=== PATIENT | female | born 2000 | race Caucasian/White ===

== ENCOUNTER 2024-09-01 00:21 | Emergency (ER) | payer SELFPAY ==
[2024-09-01 00:28] VITALS: BP 110/83
--- NOTE | 2024-09-01 01:41 | EDRN ---
Pt ate pizza last evening and went out with friends drinking. pt says she had 3 vodka and cranberry drinks in 3 hours. Pt says she suddenly couldn't feel her body, her feet were numb and she felt 'woozy.' Pt had nausea and vomited. Last vomited
around 2330. All symptoms have resolved and pt feels 'a lot better.' Pt has been drinking water without difficulty. Pt ate some snacks from vending machine and asked for food - given boxed turkey sandwich meal.
[2024-09-01 01:45] VITALS: BP 108/62
--- NOTE | 2024-09-01 02:31 | ED.GENMED ---
History of Present Illness
General
Chief Complaint: Alcohol Problem
Source: patient
Time Seen by Provider: 09/01/24 02:28
History of Present Illness
History of Present Illness:
23-year-old female presents to the emergency room complaining of nausea, vomiting after drinking with friends at a bar for 22st birthday. Patient admits to drinking several beverages. Patient's sister also is highly intoxicated.
Phy Exam
Physical Exam
Physical Exam:
General: Awake, Alert, Oriented X3. No acute distress. Mildly intoxicated
Vitals: unremarkable
Head: Atraumatic
Eyes: Pupils equal, EOMI
Throat: Airway intact, no exudates
Neck: Trachea midline
Lungs: Clear and equal b/l
Heart: Regular rate, no murmurs
Abd: Soft, Nontender, No pulsatile mass
Neuro: Nonfocal
Skin: Warm, dry, no rash
Extremities: pulses equal b/l, no edema
Scores
Withdrawal Assessment of Alcohol
Withdrawal Assessment Completed?: Not applicable
Course
Vital Signs
Initial and Last Documented VS:
Initial Vital Signs
Temp Pulse Resp BP Pulse Ox
98.5 F 75 16 110/83 100
09/01/24 00:28 09/01/24 00:28 09/01/24 00:28 09/01/24 00:28 09/01/24 00:28
Last Documented Vital Signs
Temp Pulse Resp BP Pulse Ox
98.5 F 72 16 108/62 100
09/01/24 00:28 09/01/24 01:45 09/01/24 01:45 09/01/24 01:45 09/01/24 02:33
MDM/Problems Addressed
Differential Diagnosis Includes:
Alcohol intoxication, gastritis
MDM/Problems Addressed:
Patient feeling intoxicated, nauseous initially. While waiting to be seen her symptoms have greatly improved. She is now tolerating oral intake. I believe she simply had too much alcohol tonight. Stable for discharge home
*Pulse Oximetry
SaO2: 100
Oxygen Mode of Delivery: Room air
Patient hypoxic: no
*Critical Care Note
Total Time (30-74mins, 75-104mins- exclusive of procedures): Not Applicable
ED Attending Note
-
Portions of this chart may have been created with voice recognition software.� Occasional wrong word or��sound alike� substitutions may have occurred due to the inherent limitations of voice recognition software.
Discharge Plan
Departure
Patient Disposition: Home (Routine Discharge)
Date of Disposition: 09/01/24
Time of Disposition: 02:37
Patient with high blood pressure during this ER visit?: No
Condition: Good
Discharge Problem:
Alcohol intoxication
Instructions: Alcohol intoxication - ED discharge instructions
Prescriptions:
No Action
citalopram 20 mg Tablet
20 mg PO DAILY
hydroxyzine HCl 10 mg Tablet
5 mg PO DAILY
Control Pill
1 tab PO DAILY
Patient Comments:
pt does not know name of BCP
Referrals:
UNKNOWN - PT DOES,NOT KNOW [Family Provider]
Interventions
Interventions:
*Risk Screen - Suicide Last Done: 09/01/24 00:28
*General Assessment Last Done: 09/01/24 00:28
*Neglect/Abuse Screening Last Done: 09/01/24 01:38
*ED- Fall Risk Assessment Last Done: 09/01/24 01:38
*Nursing Disposition Last Done: 09/01/24 02:44
ED- Neurological Assessment Last Done: 09/01/24 01:38
Discharge Date and Time
Discharge Date/Time: 09/01/24 02:44
Print Language: SINHALA
== END 2024-09-01 02:44 | disposition home or self-care (01) ==
LOC: EMR 00:21
PROVIDERS: EMERGENCY PHYSICIAN Emergency Medicine
DX: F10.129 Alcohol abuse with intoxication, unspecified (principal); R11.2 Nausea with vomiting, unspecified
CPT/HCPCS: 99282